=== PATIENT | male | born 1955 | race African-American/Black ===

== ENCOUNTER 2019-11-19 01:52 | Inpatient (IN) | payer OTHER ==
[2019-11-19] MEDS ORDERED: Propofol 1,000 MG/100 ML VIAL IV ONE (02:04)
[2019-11-19] MEDS ORDERED: Magnesium 2 GM/50 ML BAG (IN WATER) ONE (02:10)
[2019-11-19 02:17] LABS: #Basophils 0.1 thou/uL (0.0-0.2); #Eosinphils 0.6 thou/uL (0.0-0.7); #Lymphocytes 1.8 thou/uL (1.20-3.40); #Monocytes 1.4 thou/uL (0.11-0.59); #Neutrophils 14.7 thou/uL (1.40-6.50); %Basophils 0.7 % (0.0-1.0); %Eosinophils 3.4 % (0.0-10.0); %Lymphocytes 9.4 % (21.0-51.0); %Monocytes 7.6 % (0.0-10.0); %Neutrophils 78.8 % (42.0-75.0); Hemoglobin 12.8 g/dL (14.0-18.0); Mean Corpuscular HGB CONC 32.2 g/dL (32.0-36.0); Mean Corpuscular Hemoglobin 27.2 pg (27.0-31.0); Mean Corpuscular Volume 84.5 fL (78.0-98.0); Mean Platelet Volume 9.8 fL (7.4-10.4); Platelet Count 310 thou/uL (130-400); RBC Distribution Width 13.3 % (11.5-14.5); Red Blood Cell (RBC) Count 4.72 mill/uL (4.70-6.10); White Blood Cell (WBC) Count 18.6 thou/uL (4.8-10.8)
[2019-11-19 02:19] LABS: Actual Bicarbonate (HCO3a) 24.4 mEq/L (22-28); Analyzer IN Cardio ER; Base Excess (BEa) -3.3 mEq/L (-2.0 to +3.0); CO2 Tension 55.4 mmHg (35.0-45.0); Carboxyhemoglobin (COHb) 0.3 gm% (0.0-3.0); Hemoglobin (Hb) 13.1 g/dL (14.0-18.0); O2 Tension (PaO2) 202.3 mmHg (> 80.0); Potassium - ABG Lab 3.66 mmol/L (3.70-5.30); pH, Arterial 7.26 (7.35-7.45)
[2019-11-19 02:27] LABS: Puncture Site LRA
[2019-11-19] MEDS ORDERED: Cefepime 2 GM VIAL ONE (02:28)
[2019-11-19 02:37] LABS: ALT (SGPT) 14 U/L (8-55); AST (SGOT) 15 U/L (5-34); Albumin 4.3 g/dL (3.4-4.8); Alkaline Phosphatase 109 U/L (40-110); Anion Gap 15 mmol/L (10-20); BUN (Urea Nitrogen) 10 mg/dL (8.4-25.7); Bilirubin, Total 0.5 mg/dL (0.2-1.2); Calc. Creatinine Clearance 0 mL/min (70-130); Calcium 9.3 mg/dL (7.8-10.44); Carbon Dioxide 26 mmol/L (23-31); Chloride 103 mmol/L (98-107); Estimated GFR-MDRD Greater than 90; Globulin 3.9 g/dL (2.4-3.5); Glucose 159 mg/dL (80-115); Protein, Total 8.2 g/dL (5.8-8.1); Sodium 140 mmol/L (136-145)
[2019-11-19] MEDS ORDERED: Vancomycin 1 GM/200 ML BAG ONE (03:15)
[2019-11-19] MEDS ORDERED: Propofol BOLUS 1,000 MG/100 ML VIAL IV PRN (04:49)
[2019-11-19] MEDS ORDERED: Propofol 1,000 MG/100 ML VIAL IV PRN (04:49)
[2019-11-19] MEDS ORDERED: Ondansetron ODT 4 MG TAB PO PRN (04:57)
[2019-11-19] MEDS ORDERED: Dextrose 5% in Water 1,000 ML IV PRN (04:57)
[2019-11-19] MEDS ORDERED: CCU Electrolyte Replacement 1 EACH FS ONE (04:57)
[2019-11-19] MEDS ORDERED: Ondansetron PF 4 MG/2 ML Vial IVP PRN (04:57)
[2019-11-19] MEDS ORDERED: Acetaminophen 650 MG Suppository PR PRN (04:57)
[2019-11-19] MEDS ORDERED: Acetaminophen 500 MG TAB PO PRN (04:57)
[2019-11-19] MEDS ORDERED: Ventilator Sedation Protocol 1 EACH FS ONE (04:57)
[2019-11-19] MEDS ORDERED: Labetalol HCl 100 MG/20 ML VIAL SLOW IVP PRN (04:57)
[2019-11-19] MEDS ORDERED: Dextrose 50% Abboject 50 ML SYRINGE SLOW IVP PRN (04:57)
[2019-11-19] MEDS ORDERED: DISCONTINUE PREVIOUS NARCOTIC PAIN MEDICATIONS AND BENZODIAZEPINES FS SCH (04:58)
[2019-11-19] MEDS ORDERED: Lorazepam 2 MG/ML VIAL SLOW IVP PRN (04:58)
[2019-11-19] MEDS ORDERED: Morphine 2 MG/ML SYRINGE SLOW IVP PRN (04:58)
[2019-11-19] MEDS ORDERED: fentaNYL Citrate/PF 2,000 MCG in Sodium Chloride 0.9% 60 ML IV SCH (04:58)
[2019-11-19] MEDS ORDERED: Fentanyl BOLUS 250 ML IVPB PRN (04:58)
[2019-11-19] MEDS ORDERED: Potassium Phosphate 15 MMOL in Sodium Chloride 0.9% 250 ML 250 ML IV PRN (04:59)
[2019-11-19] MEDS ORDERED: Magnesium Oxide 400 MG TAB PO PRN ×2 (04:59)
[2019-11-19] MEDS ORDERED: Potassium Phosphate 9 MMOL in Sodium Chloride 0.9% 100 ML IVPB PRN (04:59)
[2019-11-19] MEDS ORDERED: Potassium Chloride 40 MEQ in Premix Bag 1 BAG IVPB PRN (04:59)
[2019-11-19] MEDS ORDERED: Potassium Chloride 20 MEQ TAB PO PRN (04:59)
[2019-11-19] MEDS ORDERED: Potassium Phosphate 12 MMOL in Sodium Chloride 0.9% 250 ML 250 ML IV PRN (04:59)
[2019-11-19] MEDS ORDERED: Magnesium 2 GM/50 ML 2 GM in Premix Bag 1 BAG IVPB PRN (04:59)
[2019-11-19] MEDS ORDERED: Potassium Chloride 40 MEQ in Sodium Chloride 0.9% 250 ML 250 ML IVPB PRN (04:59)
[2019-11-19] MEDS ORDERED: PHOS-NAK 1 PKT PACK PO PRN ×2 (04:59)
[2019-11-19] MEDS ORDERED: CCU ELECTROLYTE REPLACEMENT PROTOCOL FS PRN (04:59)
[2019-11-19 05:02] VITALS: BMI 37.1
[2019-11-19] MEDS: Dextrose 5 % And 0.9 % NaCl 1,000 ML IV SCH ×2 (05:14→09:36)
[2019-11-19] MEDS: Sodium Chloride 0.9% 1,000 ML IV SCH ×2 (05:15→15:00)
--- NOTE | 2019-11-19 05:31 | HP ---
PRIMARY CARE PROVIDERS: [place], [place] [facility]. CHIEF COMPLAINT: Shortness of breath. HISTORY OF PRESENT ILLNESS: This is a 64-year-old male, who was transported to [facility] Emergency Department after complaining of increased shortness of breath. The patient apparently presented to the [facility] at the [facility] and noted to be in respiratory distress. The patient received bronchodilator therapy and placed on oxygen and was noted with O2 saturations in the 70% range. The patient had initial improvement with oxygen supplementation and DuoNeb therapy, however, rapidly decompensated, at which point, EMS personnel were notified. The patient was evaluated on site and given a trial of continuous positive airway pressure. The patient continued to clinically decline and became lethargic with altered mental status. The patient was intubated prior to arrival. In the emergency room, the patient received aggressive resuscitation with IV Solu-Medrol 125 mg IV push in addition to Rocephin 2 g IV push, azithromycin 500 mg, and vancomycin 1 g. The patient also received magnesium sulfate 2 g IV piggyback and placed on Diprivan infusion for sedation on mechanical ventilation. Chest imaging showed no acute infiltrate with hyperinflation of the lung pereyra. CT angiogram of the chest showed no evidence for pulmonary embolus. The patient was referred to the Hospitalist Service for admission. PAST MEDICAL HISTORY: 1. Diabetes mellitus, type 2. 2. Hypertension. 3. Chronic obstructive pulmonary disease. 4. Benign prostatic hyperplasia. 5. Depression. PAST SURGICAL HISTORY: Reviewed and negative. CURRENT MEDICATIONS: 1. Amlodipine 10 mg p.o. daily. 2. Lipitor 10 mg p.o. daily. 3. Atrovent 2 puffs inhaled t.i.d. 4. Dulera 2 puffs inhaled b.i.d. 5. Novolin N 26 units subcutaneously q.a.m. and 13 units subcutaneously at bedtime. 6. Terazosin 2 mg p.o. daily. 7. Timolol maleate ophthalmic drops 0.5% one drop to each eye b.i.d. 8. Venlafaxine 150 mg p.o. daily. 9. Metformin 1000 mg p.o. b.i.d. ALLERGIES: HAL INHIBITORS AND HYDRALAZINE. FAMILY HISTORY: No inheritable diseases per review of the medical record. SOCIAL HISTORY: Resides at [facility], [place] [facility]. No current alcohol, tobacco, or illicit drug use. REVIEW OF SYSTEMS: Unobtainable due to patient's altered mental status and respiratory failure, on mechanical ventilation. PHYSICAL EXAMINATION: VITAL SIGNS: On admission; blood pressure 175/105, pulse 94, respiratory rate 22, temperature 97.2 degrees Fahrenheit, and O2 saturation 100% on FiO2 of 40%. GENERAL APPEARANCE: This is a 64-year-old male, on current mechanical ventilation and sedation with propofol. HEENT: Pupils are equal, round, and reactive to light and accommodation. Extraocular muscles are intact. No scleral icterus. Mild conjunctival injection. Nares patent. OP is clear with ET tube in place. NECK: Supple. No cervical adenopathy. No thyromegaly. No carotid bruits. No JVD appreciated. No meningeal signs noted. CHEST: Diminished breath sounds bilaterally with expiratory wheeze. Poor air flow in the bases. CARDIOVASCULAR: S1 and S2 with tachycardia. No murmur, rub, or gallop appreciated. ABDOMEN: Obese, soft, nontender, and nondistended. Bowel sounds are positive in all 4 quadrants. There is no hepatosplenomegaly. No abdominal bruits. No rebound or guarding appreciated. EXTREMITIES: Warm and dry with fair turgor. Minimal edema to the ankle region bilaterally. Pulses palpable distally at the dorsalis pedis, posterior tibial, and popliteal arteries bilaterally. Capillary refill less than 2 seconds. NEUROLOGIC: Sedate on mechanical ventilation. Occasional random movement of the feet and arms. PERTINENT LABORATORY AND X-RAY FINDINGS: Sodium 140, potassium 4.0, chloride 103, CO2 of 26, BUN 10, creatinine 0.82, and glucose 159. Lactic acid level 0.6 and calcium 9.3. LFTs within normal limits. BNP 21.3. CBC showed a white blood cell count of 18.6, hemoglobin 12.8, hematocrit 40, and platelet count 310 with 79% neutrophils. D-dimer 0.68. ABG dated 11/19/2019, showed a pH of 7.26, pCO2 of 55, PO2 of 202, bicarb 24, and O2 saturation 99% on 60% FiO2 by SIMV. Portable chest x-ray dated 11/19/2019, showed no acute cardiopulmonary process. Endotracheal tube in appropriate positioning. CT angiogram of the chest dated 11/19/2019, showed no acute pulmonary embolus. EKG dated 11/19/2019, by my interpretation shows sinus tachycardia with heart rates in the 100s. Normal R-wave progression noted in the precordial leads. No acute ST-T wave changes appreciated. ASSESSMENT AND PLAN: 1. Acute hypoxic hypercapnic respiratory failure. The patient will be admitted to the Critical Care unit. Suspect secondary to sepsis and chronic obstructive pulmonary disease exacerbation. We will continue SIMV and titrate to clinical response. Consult Pulmonology Service in the a.m. Repeat ABG and portable chest x-ray. 2. Sepsis. Likely pulmonary etiology, however, no specific infiltrate identified on chest imaging. Continue general sepsis protocol. IV fluids with normal saline at 100 mL/hour. Continue Rocephin 2 g IV q.24 hours with additional Levaquin 750 mg IV daily. 3. Chronic obstructive pulmonary disease exacerbation. We will continue aggressive pulmonary supportive management. DuoNebs q.4 hours. Solu-Medrol 40 mg IV q.6 hours. Add Dulera 2 puffs inhaled b.i.d. 4. Diabetes mellitus, type 2. Insulin sliding scale for reflexive coverage. Serial Accu-Cheks before meals and at bedtime. ADA diet when tolerating p.o. intake. 5. Hypertension. Labile. Suspect secondary to #1. Labetalol 20 mg IV push q.4 hours p.r.n. systolic greater than or equal to 170. 6. Prophylaxis. SCDs while in bed. Pepcid 20 mg IV b.i.d. CCU sedation and electrolyte protocol. 7. Code status is full. Surrogate medical decision maker, not identified. TIME SPENT: Total critical care time provided by me, 45 minutes. Job ID: [id number]
[2019-11-19] MEDS: methylPREDNISolone Sod Succ 40 MG VIAL IVP SCH ×2 (05:46→15:00)
[2019-11-19] MEDS: HumaLOG 300 UNITS/3 ML VIAL SC PRN ×3 (06:16→15:47)
[2019-11-19] MEDS: Famotidine/PF 20 mg/2ml Vial SLOW IVP SCH ×2 (07:43→20:06)
[2019-11-19] MEDS: Mometasone 200 MCG/Formoterol 5 MCG 120 PUFF INHALER INH SCH ×2 (07:50→19:43)
--- NOTE | 2019-11-19 07:50 | CT ---
PRELIMINARY REPORT/[facility]/EMERGENCY AFTER HOURS PROCEDURE PROCEDURE: CTA Chest with IV Contrast Material . HISTORY: Short of breath. TECHNIQUE: Axial images were performed with multiplanar and 3-D (maximum intensity projection and thien face-shaded) reconstructions. The patient was given iodinated nonionic IV contrast . COMPARISON: None . FINDINGS: Mild atherosclerosis and tortuosity thoracic aorta with no aneurysm or dissection. No evidence of pulmonary embolus. Some scattered prominent mediastinal nodes to 1.3 cm. Calcified hilar lymph nodes bilaterally. Endo tracheal and NG tube in place. Normal size heart with no pericardial fluid. Minimal scar versus atelectasis lung bases and RIGHT upper lobe. No pulmonary consolidation, masses, or pleural fluid. Punctate calcified granulomas both lung pereyra. Visualized upper abdomen shows punctate calcified granulomas in the liver and spleen. No acute bony abnormality IMPRESSION: No pulmonary embolus or aortic dissection. No pulmonary consolidation. Previous granulomatous disease. Some prominent mediastinal lymph nodes. No other significant abnormality identified. ELECTRONICALLY SIGNED BY: Rashaun Mendoza MD Nov 19, 2019 3:31:15 AM CDT This report is intended for review by the ordering physician only, in accordance of law. If you recei ve this report in error, please call [facility] at [phone]. FINAL REPORT Exam: CT angiogram of the chest HISTORY: Dyspnea.Shortness of breath. COMPARISON: None TECHNIQUE: CT angiogram of the chest is performed in the axial plane. Three-dimensional reformatted i mages are submitted for interpretation FINDINGS: Mediastinum: No mass, lymphadenopathy or hematoma. HEART: Normal size. No significant pericardial fluid. Aorta: No aneurysm or dissection Upper solid abdominal viscera: No abnormality enhancement. Trachea and central bronchi: Patent Pleural spaces: No effusion Lung parenchyma: No masses or consolidation. There are dependent atelectatic changes. Pneumothorax: None Osseous structures: No lytic or blastic lesions Pulmonary arteries: Adequate contrast opacification pulmonary arterial system to the level of segment al arteries. No filling defect to suggest pulmonary embolism IMPRESSION: 1. This report is in agreement with initial report by [facility] 2. No evidence of pulmonary embolism to the level of segmental arteries. Transcribed Date/Time: 11/19/2019 8:34 AM
[2019-11-19] MEDS ORDERED: cefTRIAXone\\ROCEPHIN 2 GM in Sodium Chloride 0.9% 100 ML IVPB SCH (08:00)
--- NOTE | 2019-11-19 08:02 | RAD ---
EXAM: CHEST ONE VIEW HISTORY: Dyspnea/shortness of breath. Decreased oxygen saturation. COMPARISON: None FINDINGS: Endotracheal tube is noted in place with tip overlying the T4-5 level and above the level of the vanessa na. Nasogastric tube is noted in place, but the distal portion of nasogastric tube is not well seen on this exam. The cardiac silhouette and pulmonary vasculature are within normal limits. Calcified gr anuloma is seen at the right lung base. The lungs are otherwise clear. The osseous structures are intact. IMPRESSION: 1. Endotracheal tube and nasogastric tubes are noted in place. The distal portion of the nasogastric tube is not visualized on this exam. 2. No acute cardiopulmonary process.
--- NOTE | 2019-11-19 09:27 | PDOC.HOSPP ---
- Subjective Encounter Date: 11/19/19 Encounter Time: 09:27 Subjective: intubated, ju-responsive - Objective Vital Signs & Weight: Vital Signs (12 hours) Temp Pulse Resp BP Pulse Ox 11/19/19 08:37 97.9 F 79 24 H 97 11/19/19 08:00 97.9 F 24 H 11/19/19 07:53 87 11/19/19 07:49 91 24 H 100 11/19/19 07:24 100 11/19/19 06:00 24 H 11/19/19 05:17 100 11/19/19 04:52 93 135/70 Weight Weight 258 lb 13.163 oz Most Recent Monitor Data Heart Rate from ECG 75 NIBP 99/58 NIBP BP-Mean 68 Respiration from ECG 3 SpO2 98 I&O: 11/18/19 11/19/19 11/20/19 06:59 06:59 06:59 Intake Total 164.7 100 Output Total 200 345 Balance -35.3 -245 Result Diagrams: 11/19/19 02:06 11/19/19 02:06 Additional Labs: Accuchecks 11/19/19 06:04 POC Glucose 201 H Hospitalist ROS - Medication Medications: Active Medications Generic Name Dose Route Start Last Admin Trade Name Freq PRN Reason Stop Dose Admin Albuterol/Ipratropium 3 ml 11/19/19 06:30 11/19/19 07:49 Duoneb NEB 3 ml [id number] BROOKLYNN Administration Famotidine 20 mg 11/19/19 09:00 11/19/19 07:43 Pepcid SLOW IVP 20 mg Q12HR BROOKLYNN Administration Dextrose/Sodium Chloride 1,000 mls @ 125 mls/hr 11/19/19 05:00 11/19/19 05:14 D5 0.9% Ns IV 11/19/19 15:20 Not Given .Q8H BROOKLYNN Ceftriaxone Sodium 2 gm/ 100 mls @ 200 mls/hr 11/19/19 08:00 11/19/19 07:50 Sodium Chloride IVPB 100 mls Q24HR BROOKLYNN Administration Levofloxacin 750 mg/ Device 150 mls @ 100 mls/hr 11/19/19 06:00 11/19/19 05: 46 IVPB 150 mls Q24HR BROOKLYNN Administration Sodium Chloride 1,000 mls @ 100 mls/hr 11/19/19 04:57 11/19/19 05:15 Normal Saline 0.9% IV Not Given .Q10H BROOKLYNN Fentanyl Citrate 2,000 mcg/ 100 mls @ 0 mls/hr 11/19/19 04:58 11/19/19 07:40 Sodium Chloride IV 12/19/19 04:58 100 mls INF BROOKLYNN Administration Protocol Per Protocol Insulin Human Lispro 0 units 11/19/19 04:57 11/19/19 06:16 Humalog SC 3 unit .MILD SLIDING SCALE PRN Administration Mild Correctional Scale Methylprednisolone Sodium Succinate 40 mg 11/19/19 06:00 11/19/19 05:46 Solu-Medrol IVP 40 mg Q6HR BROOKLYNN Administration Mometasone Furoate/Formoterol Fumar 2 puff 11/19/19 06:30 11/19/19 07:50 Dulera 200 Mcg/5 Mcg Inhaler INH 2 puff BID-RT BROOKLYNN Administration - Exam General Appearance: NAD Neck: no JVD Heart: RRR, no murmur Respiratory - other findings: good BS, moderately diminished Gastrointestinal: soft, non-distended Extremities: no edema Hosp A/P (1) Acute respiratory failure with hypoxia and hypercapnia Code(s): J96.01 - ACUTE RESPIRATORY FAILURE WITH HYPOXIA; J96.02 - ACUTE RESPIRATORY FAILURE WITH HYPERCAPNIA Status: Acute (2) COPD exacerbation Code(s): J44.1 - CHRONIC OBSTRUCTIVE PULMONARY DISEASE W (ACUTE) EXACERBATION Status: Acute (3) DM type 2 (diabetes mellitus, type 2) Status: Acute Qualifiers: 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
[2019-11-19] MEDS ORDERED: Iopamidol 370 76% 100 ML VIAL ONE (14:30)
--- NOTE | 2019-11-19 16:17 | CON ---
DATE OF CONSULTATION: 11/19/2019 SERVICE: Pulmonary Medicine. REASON FOR CONSULTATION: Respiratory failure. HISTORY OF PRESENT ILLNESS: The patient is a 64-year-old male with past medical history significant for some degree of COPD. He was in his usual state of health in custody at [facility]. He started having increasing work of breathing and shortness of breath. He presented to the emergency department and was subsequently intubated for respiratory failure. Overnight, his oxygen requirements have improved significantly. Apparently, he had some severe obstructive airflow limitation, but on mechanical waveforms, that is not currently present. He denies any current chest discomfort, nausea, or vomiting. Otherwise, there has been no interval changes to his condition. Nursing reports no overnight events. PAST MEDICAL HISTORY: 1. COPD. 2. Type 2 diabetes mellitus. 3. Hypertension. 4. Major depressive disorder. 5. BPH. PAST SURGICAL HISTORY: None. ALLERGIES: HAL INHIBITORS AND HYDRALAZINE. MEDICATIONS: List of his inpatient medications was reviewed. No specific updates were made at this time. FAMILY HISTORY: Noncontributory. SOCIAL HISTORY: Negative for alcohol, tobacco, or illicit drug use. He currently is in the [place] [facility] at [facility]. REVIEW OF SYSTEMS: This cannot be obtained as the patient is currently intubated and sedated. PHYSICAL EXAMINATION: VITAL SIGNS: Afebrile; pulse 107; blood pressure 119/91; respirations 21; and saturation 100%, currently on 23% FiO2 and a PEEP of 5. GENERAL: The patient is intubated and sedated. HEENT: Normocephalic and atraumatic. Sclerae are white. Conjunctivae are pink. Oral mucosa is moist without lesions. LUNGS: Decent air entry. There is a little prolonged expiratory phase, but not much wheezing. No crackles are appreciated. HEART: Normal rate, regular. ABDOMEN: Soft, nontender, and nondistended. Bowel sounds are positive. MUSCULOSKELETAL: No cyanosis or clubbing. No pitting in bilateral lower extremities. NEUROLOGIC: Grossly nonfocal. LABORATORY DATA: WBC 18.6, hemoglobin 12.8, and platelets 310,000. D-dimer 0.68. PH of 7.26, pCO2 of 55, pO2 of 202, corresponding to a saturation of 99%. At the time, he is on 60% FiO2. Basic metabolic profile and liver function studies are unremarkable. BNP 21.3. Troponin less than the assay limit of 0.01. Lactate is unremarkable. Influenza A and B are negative. IMAGING DATA: CTA of the chest demonstrates no evidence of an acute pulmonary embolism. There are no infiltrates present. Little scattered atelectasis here and there are present. ASSESSMENT: 1. Acute hypoxic and hypercapnic respiratory failure. 2. Chronic obstructive pulmonary disease with acute exacerbation. DISCUSSION AND PLAN: The patient is doing fine on mechanical ventilator. I will put him on a spontaneous breathing trial. If he meets criteria, extubation will be considered. Pulmonary/Critical Care will continue to follow along in this location. We will convert his steroids over to p.o. He can complete a 5-day course. We will continue his antibiotics and nebulized therapy. On discharge from the hospital, he will need to resume his home inhalers. Critical care time: 30 minutes. Job ID: [id number] MTDD
[2019-11-19] MEDS ORDERED: FLU VACC TS2019-20(65YR UP)/PF 180 MCG/0.5 ML SYRINGE IM ONE (21:00)
[2019-11-20] MEDS: HumaLOG 300 UNITS/3 ML VIAL SC PRN ×4 (05:13→21:40)
[2019-11-20 05:46] LABS: Hemoglobin 12.2 g/dL (14.0-18.0); Hypochromia SLIGHT = 6-15 cells (100X) (0-5/hpf); Lymphocytes 5 % (21-51); MDiff Complete? YES; Mean Corpuscular HGB CONC 32.3 g/dL (32.0-36.0); Mean Corpuscular Hemoglobin 27.3 pg (27.0-31.0); Mean Corpuscular Volume 84.4 fL (78.0-98.0); Mean Platelet Volume 9.8 fL (7.4-10.4); Monocytes 9 % (0-10); Neutrophil 86 % (42-75); Platelet Count 396 thou/uL (130-400); Platelet Morphology Comment Appears Adequate; RBC Distribution Width 13.5 % (11.5-14.5); Red Blood Cell (RBC) Count 4.49 mill/uL (4.70-6.10); White Blood Cell (WBC) Count 16.1 thou/uL (4.8-10.8)
[2019-11-20] MEDS: Mometasone 200 MCG/Formoterol 5 MCG 120 PUFF INHALER INH SCH ×2 (07:24→19:25)
[2019-11-20] MEDS: Famotidine/PF 20 mg/2ml Vial SLOW IVP SCH ×2 (08:42→21:40)
[2019-11-20] MEDS: predniSONE 20 MG TAB PO SCH (08:42)
--- NOTE | 2019-11-20 14:47 | PDOC.HOSPP ---
- Subjective Encounter Date: 11/20/19 Subjective: Feeling some better. Breathing a little better. Denies fever. Has had several prior admissions for the same. This is no different than previous episodes. - Objective Vital Signs & Weight: Vital Signs (12 hours) Temp Pulse Resp BP Pulse Ox 11/20/19 13:56 94 18 99 11/20/19 11:15 98.4 F 99 16 154/83 H 95 11/20/19 10:13 93 18 98 11/20/19 07:18 87 18 99 11/20/19 06:57 97.9 F 93 18 146/83 H 97 11/20/19 04:31 98.2 F 109 H 18 138/83 92 L Weight Admit Weight 258 lb Weight 258 lb 13.163 oz Most Recent Monitor Data Heart Rate from ECG 107 NIBP 119/91 NIBP BP-Mean 99 Respiration from ECG 21 SpO2 100 I&O: 11/19/19 11/20/19 11/21/19 06:59 06:59 06:59 Intake Total 164.7 2044 Output Total 200 3540 Balance -35.3 -1496 Result Diagrams: 11/20/19 04:45 11/19/19 02:06 Additional Labs: Accuchecks 11/20/19 11/20/19 11/19/19 11:22 04:35 20:20 POC Glucose 213 H 215 H 221 H 11/19/19 15:24 POC Glucose 231 H Hospitalist ROS - Medication Medications: Active Medications Generic Name Dose Route Start Last Admin Trade Name Freq PRN Reason Stop Dose Admin Albuterol/Ipratropium 3 ml 11/19/19 06:30 11/20/19 13:56 Duoneb NEB 3 ml [id number] BROOKLYNN Administration Famotidine 20 mg 11/19/19 09:00 11/20/19 08:42 Pepcid SLOW IVP 20 mg Q12HR BROOKLYNN Administration Levofloxacin 750 mg/ Device 150 mls @ 100 mls/hr 11/19/19 06:00 11/20/19 05: 07 IVPB 150 mls Q24HR BROOKLYNN Administration Insulin Human Lispro 0 units 11/19/19 04:57 11/20/19 13:29 Humalog SC 3 unit .MILD SLIDING SCALE PRN Administration Mild Correctional Scale Mometasone Furoate/Formoterol Fumar 2 puff 11/19/19 06:30 11/20/19 07:24 Dulera 200 Mcg/5 Mcg Inhaler INH 2 puff BID-RT BROOKLYNN Administration Prednisone 40 mg 11/20/19 08:00 11/20/19 08:42 Prednisone PO 11/24/19 08:01 40 mg QAM-WM BROOKLYNN Administration - Exam General Appearance: NAD, awake alert Heart: RRR, no murmur, no gallops, no rubs, normal peripheral pulses Respiratory: rales, wheezes Gastrointestinal: soft, non-tender, non-distended, normal bowel sounds, no palpable masses, no hepatomegaly, no splenomegaly, no bruit Extremities: no cyanosis, no clubbing, no edema Skin: normal turgor Psychiatric: normal affect, normal behavior, A&O x 3 Hosp A/P (1) Acute respiratory failure with hypoxia and hypercapnia Code(s): J96.01 - ACUTE RESPIRATORY FAILURE WITH HYPOXIA; J96.02 - ACUTE RESPIRATORY FAILURE WITH HYPERCAPNIA Status: Acute (2) COPD exacerbation Code(s): J44.1 - CHRONIC OBSTRUCTIVE PULMONARY DISEASE W (ACUTE) EXACERBATION Status: Acute (3) DM type 2 (diabetes mellitus, type 2) Status: Acute Qualifiers: Diabetes mellitus assisted insulin use: unspecified watermaster insulin use status Diabetes mellitus complication status: without complication Qualified Code(s): E11.9 - Type 2 diabetes mellitus without complications (4) HTN (hypertension) Code(s): I10 - ESSENTIAL (PRIMARY) HYPERTENSION Status: Chronic Qualifiers: Hypertension type: essential hypertension Qualified Code(s): I10 - Essential (primary) hypertension
[2019-11-20] MEDS ORDERED: guaiFENesin ER 600 MG TAB PO SCH (15:30)
--- NOTE | 2019-11-20 15:36 | PRG ---
DATE OF SERVICE: 11/20/2019 SERVICE: Pulmonary Medicine. INTERVAL HISTORY: The patient is concerned that he is not on any blood pressure medicine or prostate medicine. He does not like the food selection. Additionally, he feels that he has sputum down in his chest. He is having hard time liberating. When he gets anything up, it is thick and green. He denies any current fevers or chills. He is breathing more comfortably on a day-by-day basis. Overall, he feels like he is moving in the right direction medically. PHYSICAL EXAMINATION: VITAL SIGNS: Afebrile. Pulse 99, blood pressure 154/83, respirations 16, saturation 95% on 2 L nasal cannula. GENERAL: The patient is awake and alert, in no apparent distress. LUNGS: Decreased air entry with a slightly prolonged expiratory phase. Wheezing is present today. Dependent crackles are present bibasilarly. HEART: Normal rate and regular. ABDOMEN: Soft, nontender, nondistended. Bowel sounds are positive. MUSCULOSKELETAL: No cyanosis or clubbing. There is no pitting in bilateral lower extremities. NEUROLOGIC: Grossly nonfocal. LABORATORY DATA: WBC 16.1, hemoglobin 12.2, platelets are 396,000. Neutrophils comprise of 86% of nucleated cells. Blood sugars ranging from 201 to 245. Liver function studies and basic metabolic profile are otherwise unremarkable. Blood cultures x2 and influenza A and B are negative. ASSESSMENT: 1. Acute hypoxic and hypercapnic respiratory failure. 2. Chronic obstructive pulmonary disease with acute exacerbation. DISCUSSION AND PLAN: We will schedule the patient some Mucinex. Hopefully, this will help him liberate phlegm. We will continue his current diabetic diet. His blood sugars are likely being exacerbated by his current needed steroids. At this point, he has no further requirements for inpatient Pulmonary or Critical Care opinion, and I will sign off. He will need to complete 5 days of steroids and 7 days of antibiotics. On discharge from the hospital, he will also need to resume his home inhalers. Please call with additional questions or concerns through time. Job ID: [id number] [facility]
[2019-11-21] MEDS: guaiFENesin ER 600 MG TAB PO SCH ×2 (05:28→16:04)
[2019-11-21] MEDS: Mometasone 200 MCG/Formoterol 5 MCG 120 PUFF INHALER INH SCH ×2 (07:48→19:41)
[2019-11-21] MEDS: Famotidine/PF 20 mg/2ml Vial SLOW IVP SCH (08:06)
[2019-11-21] MEDS: predniSONE 20 MG TAB PO SCH (08:06)
--- NOTE | 2019-11-21 12:52 | PDOC.HOSPP ---
- Subjective Encounter Date: 11/21/19 Subjective: Doing a little better. Indicates his breathing is about 50% of his baseline. Also say she gets and inhaler at the unit that is [facility] HFA and it doesn't help him. - Objective Vital Signs & Weight: Vital Signs (12 hours) Temp Pulse Resp BP BP Pulse Ox 11/21/19 12:10 97.8 F 96 16 143/88 H 98 11/21/19 08:00 95 11/21/19 07:49 99 11/21/19 07:48 86 16 99 11/21/19 07:26 97.7 F 84 16 143/86 H 98 11/21/19 04:00 98.0 F 83 20 131/83 95 11/21/19 02:26 12 Weight Admit Weight 258 lb Weight 258 lb 13.163 oz Most Recent Monitor Data Heart Rate from ECG 107 NIBP 119/91 NIBP BP-Mean 99 Respiration from ECG 21 SpO2 100 I&O: 11/20/19 11/21/19 11/22/19 06:59 06:59 06:59 Intake Total 2044 1800 400 Output Total 3540 2750 2600 Balance -3139 -463 -1100 Result Diagrams: 11/20/19 04:45 11/19/19 02:06 Additional Labs: Accuchecks 11/21/19 11/21/19 11/20/19 12:17 05:23 20:11 POC Glucose 248 H 137 H 332 H 11/20/19 15:56 POC Glucose 267 H Hospitalist ROS - Medication Medications: Active Medications Generic Name Dose Route Start Last Admin Trade Name Freq PRN Reason Stop Dose Admin Albuterol/Ipratropium 3 ml 11/19/19 06:30 11/21/19 11:01 Duoneb NEB 3 ml [id number] BROOKLYNN Administration Guaifenesin 600 mg 11/21/19 04:00 11/21/19 05:28 Mucinex PO 600 mg Q12H BROOKLYNN Administration Insulin Human Lispro 0 units 11/19/19 04:57 11/20/19 16:53 Humalog SC 4 unit .MILD SLIDING SCALE PRN Administration Mild Correctional Scale Insulin Human Lispro 0 units 11/19/19 04:57 11/20/19 21:40 Humalog SC 4 unit .BEDTIME SLIDING SC PRN Administration Bedtime Correctional Scale Mometasone Furoate/Formoterol Fumar 2 puff 11/19/19 06:30 11/21/19 07:48 Dulera 200 Mcg/5 Mcg Inhaler INH 2 puff BID-RT BROOKLYNN Administration Prednisone 40 mg 11/20/19 08:00 11/21/19 08:06 Prednisone PO 11/24/19 08:01 40 mg QAM-WM BROOKLYNN Administration - Exam General Appearance: NAD, awake alert Heart: RRR, no murmur, no gallops, no rubs, normal peripheral pulses Respiratory - other findings: Wheezes, mostly L. Diminished throughout. Gastrointestinal: soft, non-tender, non-distended, normal bowel sounds, no palpable masses, no hepatomegaly, no splenomegaly, no bruit Extremities: no cyanosis, no clubbing, no edema Skin: normal turgor, no lesions, no rashes Musculoskeletal: normal tone Psychiatric: normal affect, normal behavior, A&O x 3 Hosp A/P (1) Acute respiratory failure with hypoxia and hypercapnia Code(s): J96.01 - ACUTE RESPIRATORY FAILURE WITH HYPOXIA; J96.02 - ACUTE RESPIRATORY FAILURE WITH HYPERCAPNIA Status: Acute (2) COPD exacerbation Code(s): J44.1 - CHRONIC OBSTRUCTIVE PULMONARY DISEASE W (ACUTE) EXACERBATION Status: Acute (3) DM type 2 (diabetes mellitus, type 2) Status: Acute Qualifiers: Diabetes mellitus penitentiary insulin use: unspecified superintendent terminal insulin use status Diabetes mellitus complication status: without complication Qualified Code(s): E11.9 - Type 2 diabetes mellitus without complications (4) HTN (hypertension) Code(s): I10 - ESSENTIAL (PRIMARY) HYPERTENSION Status: Chronic Qualifiers: Hypertension type: essential hypertension Qualified Code(s): I10 - Essential (primary) hypertension - Plan Still not terribly close to his baseline. Continue Steroids, nebs, abx. Weaning oxygen. Minimal need for oxygen now. Resume home meds, including metformin. Blood sugars have been a little high with the steroids. Formulary restricted meds at the [facility].
[2019-11-21] MEDS: HumaLOG 300 UNITS/3 ML VIAL SC PRN ×2 (13:46→21:31)
[2019-11-21] MEDS: Famotidine 20 MG TAB PO SCH ×2 (15:39→21:29)
[2019-11-21] MEDS: Dorzolamide HCl 2% Ophth Soln 10 ml Bottle L EYE SCH ×2 (16:02→21:27)
[2019-11-21] MEDS: metFORMIN 500 MG TAB PO SCH (16:04)
--- NOTE | 2019-11-21 17:05 | PQF ---
LIN COKER DAVID R MD [id number] CLINICAL DOCUMENTATION IMPROVEMENT CLARIFICATION FORM: ICD-10 Updated PLEASE DO AN ADDENDUM TO THE PROGRESS NOTE WITH ANY DOCUMENTATION UPDATES OR ADDITIONS AND CARRY THROUGH TO DC SUMMARY. THANK YOU. DATE: 11/21/2019 / 11/23/2019 ATTN: Dr. Ray / Dr. Odom Please exercise your independent, professional judgment in responding to the clarification form. Clinical indicators are provided on the bottom of this form for your review Please check appropriate box(es): [ XX ] Severe Sepsis with Acute Respiratory Failure due to (please specify source): ___COPD exacerbation [ ] Sepsis due to (please specify source): [ ] SIRS with Acute Respiratory Failure due to COPD [ ] SIRS due to COPD without end organ failure [ ] Other diagnosis [ ] Unable to determine For continuity of documentation, please document condition throughout progress notes and discharge summary. Thank You. CLINICAL INDICATORS - SIGNS / SYMPTOMS / LABS / RESULTS AND LOCATION IN Lab: WBC 11/18 18.6 11/19 16.1 ED 11/18: o Pulse: 96-102 Respirations: 16-22 Pulse ox: 100% on ventilator o 12 lead EKG show, sinus tachycardia o W/u here notable for SIRS criteria. H&P 11/18 (Keo): o Acute Hypoxic hypercapnic respiratory failure Suspect secondary to sepsis and chronic obstructive pulmonary disease exacerbation. o Sepsis. Likely pulmonary etiology, however, no specific infiltrate identified on chest imaging. o Continue general sepsis protocol. RISK FACTORS / RESULTS AND LOCATION IN H&P 11/18 (Keo): Past Medical History- COPD TREATMENTS / RESULTS AND LOCATION IN ED 11/18: o Cultures obtained o Cetriazone IV, Azithromycin IV, Vancomycin IV, Cefepime IV, Mechanical Ventilation Consult Pulmonology H&P 11/18 (Keo): o IV fluids with normal saline at 100ml/h. o Continue Rocephin IV with additional Levaquin IV. Thank you, Jovana (This form is maintained as a part of the permanent medical record) 2014 [email or web address]. All Rights Reserved Jovana Bassett RN, CDS [email or web address] [phone] / Cell [facility]
[2019-11-21] MEDS: Timolol 0.5% Ophth Soln 5 ml Bottle L EYE SCH (21:34)
[2019-11-22] MEDS: guaiFENesin ER 600 MG TAB PO SCH ×2 (05:13→16:06)
[2019-11-22] MEDS: Mometasone 200 MCG/Formoterol 5 MCG 120 PUFF INHALER INH SCH ×2 (07:12→18:39)
[2019-11-22] MEDS: Amlodipine 10 MG TAB PO SCH (08:33)
[2019-11-22] MEDS: Atorvastatin Calcium 10 MG TAB PO SCH (08:33)
[2019-11-22] MEDS: predniSONE 20 MG TAB PO SCH (08:33)
[2019-11-22] MEDS: Famotidine 20 MG TAB PO SCH ×2 (08:34→21:40)
[2019-11-22] MEDS: Venlafaxine HCl XR 150 MG CAP PO SCH (08:34)
[2019-11-22] MEDS: metFORMIN 500 MG TAB PO SCH ×2 (08:35→16:04)
[2019-11-22] MEDS: Timolol 0.5% Ophth Soln 5 ml Bottle L EYE SCH ×2 (08:35→19:34)
[2019-11-22] MEDS: Dorzolamide HCl 2% Ophth Soln 10 ml Bottle L EYE SCH ×3 (08:35→21:40)
--- NOTE | 2019-11-22 10:59 | PDOC.HOSPP ---
- Subjective Encounter Date: 11/22/19 Subjective: Says he is still SOB. Says he got up a chair and "almost fell out" because of SOB. - Objective Vital Signs & Weight: Vital Signs (12 hours) Temp Pulse Resp BP BP BP Pulse Ox 11/22/19 08:35 97 137/91 H 11/22/19 08:33 97 137/91 H 11/22/19 08:00 95 11/22/19 07:51 99.3 F 97 20 137/91 H 95 11/22/19 07:13 94 16 95 11/22/19 04:00 97.8 F 94 20 141/85 H 95 11/22/19 02:20 12 11/21/19 23:54 98.1 F 88 20 153/93 H 93 L Weight Admit Weight 258 lb Weight 258 lb 13.163 oz Most Recent Monitor Data Heart Rate from ECG 107 NIBP 119/91 NIBP BP-Mean 99 Respiration from ECG 21 SpO2 100 I&O: 11/21/19 11/22/19 11/23/19 06:59 06:59 06:59 Intake Total 1800 1480 Output Total 2750 3800 Balance -950 -2320 Result Diagrams: 11/20/19 04:45 11/19/19 02:06 Additional Labs: Accuchecks 11/22/19 11/21/19 11/21/19 04:37 19:55 16:31 POC Glucose 156 H 327 H 292 H 11/21/19 12:17 POC Glucose 248 H Hospitalist ROS - Medication Medications: Active Medications Generic Name Dose Route Start Last Admin Trade Name Freq PRN Reason Stop Dose Admin Albuterol/Ipratropium 3 ml 11/19/19 06:30 11/22/19 07:13 Duoneb NEB 3 ml [id number] BROOKLYNN Administration Amlodipine Besylate 10 mg 11/22/19 09:00 11/22/19 08:33 Norvasc PO 10 mg DAILY BROOKLYNN Administration Atorvastatin Calcium 10 mg 11/22/19 09:00 11/22/19 08:33 Lipitor PO 10 mg DAILY BROOKLYNN Administration Dorzolamide HCl 1 drop 11/21/19 15:00 11/22/19 08:35 Trusopt 2% Ophth Soln L EYE 1 drop TID BROOKLYNN Administration Famotidine 20 mg 11/21/19 09:00 11/22/19 08:34 Pepcid PO 20 mg BID BROOKLYNN Administration Guaifenesin 600 mg 11/21/19 04:00 11/22/19 05:13 Mucinex PO 600 mg Q12H BROOKLYNN Administration Insulin Human Lispro 0 units 11/19/19 04:57 11/21/19 13:46 Humalog SC 3 unit .MILD SLIDING SCALE PRN Administration Mild Correctional Scale Insulin Human Lispro 0 units 11/19/19 04:57 11/21/19 21:31 Humalog SC 4 unit .BEDTIME SLIDING SC PRN Administration Bedtime Correctional Scale Levofloxacin 750 mg 11/22/19 06:00 11/22/19 05:13 Levaquin PO 750 mg 0600 BROOKLYNN Administration Metformin HCl 1,000 mg 11/21/19 17:00 11/22/19 08:35 Glucophage PO 1,000 mg BID-WM BROOKLYNN Administration Mometasone Furoate/Formoterol Fumar 2 puff 11/19/19 06:30 11/22/19 07:12 Dulera 200 Mcg/5 Mcg Inhaler INH 2 puff BID-RT BROOKLYNN Administration Prednisone 40 mg 11/20/19 08:00 11/22/19 08:33 Prednisone PO 11/24/19 08:01 40 mg QAM-WM BROOKLYNN Administration Timolol Maleate 1 drop 11/21/19 21:00 11/22/19 08:35 Timoptic 0.5% Ophth Soln L EYE 1 drop BID BROOKLYNN Administration Venlafaxine HCl 150 mg 11/22/19 09:00 11/22/19 08:34 Effexor Xr PO 150 mg QAM BROOK[place]NN Administration - Exam General Appearance: NAD, awake alert Heart: RRR, no murmur, no gallops, no rubs, normal peripheral pulses Respiratory - other findings: Very minimal exp wheeze. Fairly good air exchange. Gastrointestinal: soft, non-tender, non-distended, normal bowel sounds, no palpable masses, no hepatomegaly, no splenomegaly, no bruit Extremities: no cyanosis, no clubbing, no edema Musculoskeletal: normal tone, normal strength, no muscle wasting Psychiatric: normal affect, normal behavior, A&O x 3 Hosp A/P (1) Acute respiratory failure with hypoxia and hypercapnia Code(s): J96.01 - ACUTE RESPIRATORY FAILURE WITH HYPOXIA; J96.02 - ACUTE RESPIRATORY FAILURE WITH HYPERCAPNIA Status: Acute (2) COPD exacerbation Code(s): J44.1 - CHRONIC OBSTRUCTIVE PULMONARY DISEASE W (ACUTE) EXACERBATION Status: Acute (3) DM type 2 (diabetes mellitus, type 2) Status: Acute Qualifiers: Diabetes mellitus assistant terminal manager insulin use: unspecified assistant terminal manager insulin use status Diabetes mellitus complication status: without complication Qualified Code(s): E11.9 - Type 2 diabetes mellitus without complications (4) HTN (hypertension) Code(s): I10 - ESSENTIAL (PRIMARY) HYPERTENSION Status: Chronic Qualifiers: Hypertension type: essential hypertension Qualified Code(s): I10 - Essential (primary) hypertension - Plan Room air sats are good. Continue Steroids, nebs, abx. Suspect he can DC tomorrow. He can get nebs at the [facility]. Will likely need combivent inhaler with Dulera. DC Vidya. Resume home meds, including metformin. Blood sugars have been a little high with the steroids. Formulary restricted meds at the [facility].
--- NOTE | 2019-11-22 15:04 | EKG ---
Test Reason : Blood Pressure : / mmHG Vent. Rate : 104 BPM Atrial Rate : 104 BPM P-R Int : 164 ms QRS Dur : 088 ms QT Int : 342 ms P-R-T Axes : 077 018 069 degrees QTc Int : 449 ms Sinus tachycardia Inferior infarct , age undetermined Cannot rule out Anterior infarct , age undetermined Abnormal ECG Confirmed by ONELIA EUBANKS ([id number]), order editor AMPARO STRANGE ([id number]) on 11/22/2019 3:04:10 PM Referred By: Confirmed By:ONELIA EUBANKS
[2019-11-22] MEDS: HumaLOG 300 UNITS/3 ML VIAL SC PRN ×2 (16:39→21:42)
[2019-11-23] MEDS: guaiFENesin ER 600 MG TAB PO SCH ×2 (05:11→17:04)
[2019-11-23] MEDS: HumaLOG 300 UNITS/3 ML VIAL SC PRN ×2 (05:12→14:06)
[2019-11-23] MEDS: Mometasone 200 MCG/Formoterol 5 MCG 120 PUFF INHALER INH SCH (07:46)
[2019-11-23] MEDS: Amlodipine 10 MG TAB PO SCH (08:20)
[2019-11-23] MEDS: Famotidine 20 MG TAB PO SCH (08:20)
[2019-11-23] MEDS: metFORMIN 500 MG TAB PO SCH ×2 (08:20→17:04)
[2019-11-23] MEDS: Atorvastatin Calcium 10 MG TAB PO SCH (08:20)
[2019-11-23] MEDS: predniSONE 20 MG TAB PO SCH (08:20)
[2019-11-23] MEDS: Venlafaxine HCl XR 150 MG CAP PO SCH (08:20)
[2019-11-23] MEDS: Timolol 0.5% Ophth Soln 5 ml Bottle L EYE SCH (09:42)
[2019-11-23] MEDS: Dorzolamide HCl 2% Ophth Soln 10 ml Bottle L EYE SCH ×2 (09:43→17:04)
[2019-11-23 14:17] VITALS: BP 144/86; TEMP 97.4
[2019-11-23] MEDS ORDERED: Fluticasone Propionate Nasal Spray 16 gm Bottle NASAL SCH (21:00)
--- NOTE | 2019-11-26 07:43 | DIS ---
DATE OF ADMISSION: 11/19/2019 DATE OF DISCHARGE: 11/23/2019 REASON FOR HOSPITALIZATION: Shortness of breath. SIGNIFICANT FINDINGS: The patient was found to have acute COPD exacerbation. PROCEDURES PERFORMED AND TREATMENTS RENDERED: Mr. Tapia is a 64-year-old gentleman, who presented to [facility] on 11/19/2019, with shortness of breath. Please see full history and physical on the day of admission from Dr. Crowley for details. The patient with shortness of breath and mildly elevated D-dimer, underwent CT angiography, please see full report for details. There was no pulmonary embolism identified. The patient was diagnosed with acute hypoxic and hypercapnic respiratory failure, and initially admitted to the intensive care unit. The patient with sepsis with pulmonary source and COPD diagnosed on admission. The patient was started on IV steroids, breathing treatments, and his home pulmonary medications were continued. The patient initially requiring mechanical ventilation, and Critical Care was managing the case. The patient was safely extubated on 11/20/2019. The patient had a good recovery and was weaned from oxygen completely. On 11/23/2019, the patient making good clinical improvement, was able to walk 50 feet x2 with a short break and saturating 97% on room air. The patient was recommended safe for discharge on oral antibiotics and oral steroids. Pulmonology recommending the patient safe for discharge with close followup in the outpatient setting. CONDITION ON DISCHARGE: Stable. SPECIFIC INSTRUCTIONS FOR THE PATIENT/FAMILY: 1. The patient is recommended to take a full course of oral antibiotics and oral steroids for resolution of COPD exacerbation. 2. The patient is recommended to continue all other home inhaled COPD medications. 3. The patient is recommended to take all other medications as directed by primary care physician. 4. The patient is recommended to follow up with primary care physician in the next 5 to 7 days at the [facility] unit. 5. The patient is recommended to follow up with Pulmonology in the next 2 to 4 weeks. 6. The patient is recommended to return to acute care hospital immediately if signs or symptoms return, worsen, or any other new symptoms occur. DISCHARGE MEDICATIONS: Please see full discharge medication list for details with the following changes. 1. Levofloxacin 750 mg one tablet p.o. daily. 2. Medrol Dosepak use as directed. 3. All other home medications were continued without changes. Greater than 36 minutes spent in coordinating care and discharge process for this patient. Job ID: [id number]
== END 2019-11-23 17:36 | DRG 871 ==
LOC: EEVIPCON 01:52 → ERS 01:52 → CCU 03:26 → T4-B 14:49
PROVIDERS: ADMIT Family Medicine; ATTEND Family Medicine
PROC: 5A1935Z Respiratory Ventilation, Less than 24 Consecutive Hours (ICD-10-PCS; principal; 2019-11-19)
PROC: 0BH17EZ Insertion of Endotracheal Airway into Trachea, Via Natural or Artificial Opening (ICD-10-PCS; 2019-11-19)
DX: A41.9 Sepsis, unspecified organism (principal); J96.01 Acute respiratory failure with hypoxia; J96.02 Acute respiratory failure with hypercapnia; J44.1 Chronic obstructive pulmonary disease with (acute) exacerbation; F41.9 Anxiety disorder, unspecified; E11.9 Type 2 diabetes mellitus without complications; I10 Essential (primary) hypertension; F32.9 Major depressive disorder, single episode, unspecified; N40.0 Benign prostatic hyperplasia without lower urinary tract symptoms
CPT/HCPCS: 36415; 36416; 51702; 71045; 71275; 80053; 82805; 83605; 83880; 84484; 85007; 85025; 85027; 85379; 87040; 87804; 90471; 90662; 93005; 94002; 94640; 96365; 96366; 96368; G0008; J0692; J0696; J1956; J2704; J2920; J3010; J3370; J3475; J3490; J7512; J7620; Q9967; S0028

== ENCOUNTER 2021-02-04 08:12 | Inpatient (IN) | payer OTHER ==
[2021-02-04] MEDS ORDERED: Fentanyl 100 MCG/2 ML VIAL ONE (08:25)
[2021-02-04] MEDS ORDERED: Midazolam HCl 2 mg/2 ml Vial ONE (08:25)
[2021-02-04] MEDS ORDERED: Magnesium 2 GM/50 ML 2 GM in Premix Bag 1 BAG IVPB SCH (08:45)
[2021-02-04] MEDS ORDERED: methylPREDNISolone Sod Succ/PF 125 MG/2 ML VIAL IVP SCH (08:45)
[2021-02-04] MEDS ORDERED: fentaNYL Citrate/PF 2,000 MCG in Sodium Chloride 0.9% 60 ML IV SCH (08:45)
[2021-02-04 08:51] LABS: Bilirubin Negative (Negative); Blood, Urine Moderate (Negative); Glucose, Urine (Dipstick) 500 mg/dL (Negative); Ketone, Urine Negative (Negative); Leukocyte Negative (Negative); Nitrite Negative (Negative); Protein, Urine (Dipstick) > or equal to 300 mg/dL (Neg-Trace); Specific Gravity, Urine 1.025 (1.005-1.030); Urobilinogen 0.2 mg/dL (Less than 2)
[2021-02-04] MEDS ORDERED: methylPREDNISolone Sod Succ/PF 125 MG/2 ML VIAL ONE (08:54)
[2021-02-04] MEDS ORDERED: Magnesium 2 GM/50 ML BAG (IN WATER) ONE (08:54)
[2021-02-04 08:58] LABS: Clarity Clear (Clear)
[2021-02-04 08:59] LABS: Bacteria/HPF None Seen HPF (None Seen); Squamous Epithelial 0-3 HPF (0-3)
[2021-02-04] MEDS ORDERED: Iopamidol-370 76% 500 ML 1 ML ONE (10:18)
[2021-02-04] MEDS ORDERED: Cefepime 2 GM VIAL ONE (10:31)
[2021-02-04 10:38] LABS: Actual Bicarbonate (HCO3a) 29.4 mEq/L (22-28); Analyzer IN Cardio ER; Base Excess (BEa) -2.8 mEq/L (-2.0 to +3.0); Calcium, Ionized (arterial) 1.19 mmol/L (1.12-1.30); Carboxyhemoglobin (COHb) 0.2 gm% (0.0-3.0); Hemoglobin (Hb) 13.4 g/dL (14.0-18.0); O2 Tension (PaO2), arterial 99.2 mmHg (> 80.0); Potassium - ABG Lab 5.16 mmol/L (3.70-5.30)
[2021-02-04 10:46] LABS: CO2 Tension 96.6 mmHg (35.0-45.0); Puncture Site RRA
[2021-02-04] MEDS ORDERED: Rocuronium Bromide 10 MG/ML (10ML VIAL) ONE (10:53)
[2021-02-04] MEDS ORDERED: Acetaminophen 650 MG Suppository PR PRN (11:08)
[2021-02-04] MEDS ORDERED: Ondansetron PF 4 MG/2 ML Vial IVP PRN (11:08)
[2021-02-04] MEDS ORDERED: Ondansetron ODT 4 MG TAB PO PRN (11:08)
[2021-02-04] MEDS ORDERED: Acetaminophen 325 MG TAB PO PRN (11:08)
[2021-02-04] MEDS ORDERED: Bacteriostatic Water 30 ML VIAL FS PRN (11:45)
[2021-02-04] MEDS ORDERED: Dextrose 5% in Water 1,000 ML IV PRN (11:49)
[2021-02-04] MEDS ORDERED: Dextrose 50% Abboject 50 ML SYRINGE SLOW IVP PRN (11:49)
[2021-02-04 12:05] LABS: SARS-CoV-2 NAA Rapid Test Not Detected (NotDetected)
[2021-02-04] MEDS ORDERED: Propofol 1,000 MG/100 ML VIAL IV ONE (12:33)
[2021-02-04] MEDS: Azithromycin 500 MG in Sodium Chloride 0.9% 250 ML 250 ML IVPB SCH (13:23)
[2021-02-04] MEDS ORDERED: DISCONTINUE PREVIOUS NARCOTIC PAIN MEDICATIONS AND BENZODIAZEPINES FS SCH (13:45)
[2021-02-04] MEDS ORDERED: Morphine 2 MG/ML VIAL SLOW IVP PRN (13:45)
[2021-02-04] MEDS ORDERED: Lorazepam 2 MG/ML VIAL SLOW IVP PRN (13:45)
[2021-02-04] MEDS ORDERED: Fentanyl BOLUS 250 ML IVPB PRN (13:45)
[2021-02-04] MEDS ORDERED: Propofol BOLUS 1,000 MG/100 ML VIAL IV PRN (13:45)
[2021-02-04] MEDS ORDERED: methylPREDNISolone Sod Succ 40 MG VIAL IVP SCH (14:00)
[2021-02-04] MEDS: HumaLOG 300 UNITS/3 ML VIAL SC PRN ×2 (16:27→21:38)
[2021-02-04] MEDS: methylPREDNISolone Sod Succ 40 MG VIAL IVP SCH (17:08)
[2021-02-04] MEDS ORDERED: Vecuronium 10 MG VIAL ONE (18:30)
[2021-02-04] MEDS ORDERED: Vecuronium 10 MG VIAL IV PRN (18:41)
[2021-02-04] MEDS ORDERED: Sterile Water 10 ML VIAL IVP PRN (18:41)
[2021-02-04] MEDS: Propofol 1,000 MG/100 ML VIAL IV PRN (22:41)
[2021-02-04] MEDS: Fentanyl CADD 100 ML IV SCH (23:22)
[2021-02-05] MEDS: HumaLOG 300 UNITS/3 ML VIAL SC PRN ×6 (00:19→20:33)
[2021-02-05] MEDS: methylPREDNISolone Sod Succ 40 MG VIAL IVP SCH ×3 (02:02→18:11)
[2021-02-05 03:52] LABS: Anion Gap 16 mmol/L (10-20); BUN (Urea Nitrogen) 30 mg/dL (8.4-25.7); Calc. Creatinine Clearance 97 mL/min (70-130); Calcium 9.5 mg/dL (7.8-10.44); Carbon Dioxide 23 mmol/L (23-31); Chloride 103 mmol/L (98-107); Glucose 260 mg/dL (80-115); Potassium 3.9 mmol/L (3.5-5.1); Sodium 138 mmol/L (136-145)
[2021-02-05 04:21] LABS: Band 20 % (5-11); Hemoglobin 12.7 g/dL (14.0-18.0); Lymphocytes 16 % (21-51); MDiff Complete? YES; Mean Corpuscular HGB CONC 33.2 g/dL (32.0-36.0); Mean Corpuscular Hemoglobin 27.8 pg (27.0-31.0); Mean Corpuscular Volume 83.5 fL (78.0-98.0); Mean Platelet Volume 9.8 fL (7.4-10.4); Monocytes 5 % (0-10); Neutrophil 59 % (42-75); Platelet Count 418 thou/uL (130-400); RBC Distribution Width 13.9 % (11.5-14.5); Red Blood Cell (RBC) Count 4.57 mill/uL (4.70-6.10); White Blood Cell (WBC) Count 14.5 thou/uL (4.8-10.8)
[2021-02-05 07:32] LABS: Actual Bicarbonate (HCO3a) 26.5 mEq/L (22-28); Base Excess (BEa) 3.2 mEq/L (-2.0 to +3.0); Calcium, Ionized (arterial) 1.22 mmol/L (1.12-1.30); Carboxyhemoglobin (COHb) 0.3 gm% (0.0-3.0); Hemoglobin (Hb) 13.2 g/dL (14.0-18.0); O2 Tension (PaO2), arterial 87.5 mmHg (> 80.0); Potassium - ABG Lab 3.81 mmol/L (3.70-5.30); pH, Arterial 7.48 (7.35-7.45)
[2021-02-05 07:34] LABS: Puncture Site LRA
[2021-02-05] MEDS: Propofol 1,000 MG/100 ML VIAL IV PRN ×4 (08:57→23:43)
[2021-02-05] MEDS: Enoxaparin Sodium 40 MG/0.4 ML SYRINGE SC SCH (09:00)
[2021-02-05] MEDS: Pantoprazole 40 MG GRANULES PACKET PER TUBE SCH (09:02)
[2021-02-05] MEDS: cefTRIAXone\\ROCEPHIN 1 GM in Sodium Chloride 0.9% 100 ML IVPB SCH (11:29)
[2021-02-05] MEDS: Azithromycin 500 MG in Sodium Chloride 0.9% 250 ML 250 ML IVPB SCH (13:42)
[2021-02-05] MEDS: Fentanyl CADD 100 ML IV SCH (19:35)
[2021-02-06] MEDS: HumaLOG 300 UNITS/3 ML VIAL SC PRN ×6 (00:13→20:30)
[2021-02-06] MEDS: methylPREDNISolone Sod Succ 40 MG VIAL IVP SCH ×3 (01:40→17:09)
[2021-02-06] MEDS: Propofol 1,000 MG/100 ML VIAL IV PRN ×2 (03:45→08:17)
[2021-02-06 07:33] LABS: Actual Bicarbonate (HCO3a) 28.3 mEq/L (22-28); Base Excess (BEa) 3.3 mEq/L (-2.0 to +3.0); CO2 Tension 44.4 mmHg (35.0-45.0); Calcium, Ionized (arterial) 1.22 mmol/L (1.12-1.30); Carboxyhemoglobin (COHb) 0.4 gm% (0.0-3.0); Hemoglobin (Hb) 13.3 g/dL (14.0-18.0); O2 Tension (PaO2), arterial 79.1 mmHg (> 80.0); Potassium - ABG Lab 4.23 mmol/L (3.70-5.30); pH, Arterial 7.42 (7.35-7.45)
[2021-02-06 07:35] LABS: Puncture Site LRA
[2021-02-06] MEDS: Enoxaparin Sodium 40 MG/0.4 ML SYRINGE SC SCH (08:18)
[2021-02-06] MEDS: Pantoprazole 40 MG GRANULES PACKET PER TUBE SCH (08:18)
[2021-02-06] MEDS: cefTRIAXone\\ROCEPHIN 1 GM in Sodium Chloride 0.9% 100 ML IVPB SCH (10:05)
[2021-02-06 10:19] LABS: Hemoglobin 12.9 g/dL (14.0-18.0); Mean Corpuscular HGB CONC 32.4 g/dL (32.0-36.0); Mean Corpuscular Hemoglobin 26.9 pg (27.0-31.0); Platelet Count 388 thou/uL (130-400); RBC Distribution Width 13.9 % (11.5-14.5)
[2021-02-06 10:26] LABS: Anion Gap 14 mmol/L (10-20); BUN (Urea Nitrogen) 29 mg/dL (8.4-25.7); Calc. Creatinine Clearance 123 mL/min (70-130); Calcium 8.7 mg/dL (7.8-10.44); Carbon Dioxide 26 mmol/L (23-31); Chloride 105 mmol/L (98-107); Glucose 329 mg/dL (80-115); Potassium 4.8 mmol/L (3.5-5.1); Sodium 140 mmol/L (136-145)
[2021-02-06 10:35] LABS: Band 3 % (5-11); Eosinophils 1 % (0-10); Lymphocytes 14 % (21-51); MDiff Complete? YES; Monocytes 6 % (0-10); Neutrophil 76 % (42-75); RBC Morphology Normal; White Blood Cell (WBC) Count 15.2 thou/uL (4.8-10.8)
[2021-02-06 11:33] VITALS: BMI 41.1
[2021-02-06] MEDS: Azithromycin 500 MG in Sodium Chloride 0.9% 250 ML 250 ML IVPB SCH (12:55)
[2021-02-06] MEDS ORDERED: Albuterol Sulfate 2.5 mg/3 ml Neb NEB PRN (17:09)
[2021-02-06] MEDS: Ipratropium Oral Inhaler INH SCH (19:36)
[2021-02-06] MEDS: NPH, Human Insulin Isophane 300 UNIT/3 ML VIAL SC SCH (21:08)
[2021-02-06] MEDS: Timolol 0.5% Ophth Soln 5 ml Bottle EA EYE SCH (21:10)
[2021-02-06] MEDS: Aripiprazole 10 MG TAB PO SCH (21:10)
[2021-02-06] MEDS: Atorvastatin Calcium 10 MG TAB PO SCH (21:10)
[2021-02-06] MEDS: Furosemide 40 MG TAB PO SCH (21:10)
[2021-02-06] MEDS: Citalopram 20 MG TAB PO SCH (21:10)
[2021-02-06] MEDS: Dorzolamide HCl 2% Ophth Soln 10 ml Bottle L EYE SCH (21:11)
[2021-02-07] MEDS: HumaLOG 300 UNITS/3 ML VIAL SC PRN ×6 (00:18→22:20)
[2021-02-07] MEDS: Amlodipine 10 MG TAB PO SCH ×2 (01:57→09:05)
[2021-02-07] MEDS: methylPREDNISolone Sod Succ 40 MG VIAL IVP SCH ×2 (01:59→09:06)
[2021-02-07] MEDS ORDERED: Amlodipine 10 MG TAB PO SCH (02:00)
[2021-02-07 05:39] LABS: #Eosinphils 0.1 thou/uL (0.0-0.7); #Lymphocytes 1.5 thou/uL (1.20-3.40); #Monocytes 1.2 thou/uL (0.11-0.59); %Eosinophils 0.4 % (0.0-10.0); %Lymphocytes 8.4 % (21.0-51.0); %Monocytes 6.8 % (0.0-10.0); %Neutrophils 84.4 % (42.0-75.0); Hemoglobin 13.8 g/dL (14.0-18.0); Mean Corpuscular HGB CONC 31.4 g/dL (32.0-36.0); Mean Corpuscular Hemoglobin 26.2 pg (27.0-31.0); Mean Corpuscular Volume 83.4 fL (78.0-98.0); Mean Platelet Volume 9.3 fL (7.4-10.4); Platelet Count 426 thou/uL (130-400); RBC Distribution Width 13.6 % (11.5-14.5); Red Blood Cell (RBC) Count 5.26 mill/uL (4.70-6.10); White Blood Cell (WBC) Count 17.8 thou/uL (4.8-10.8)
[2021-02-07 05:52] LABS: Anion Gap 15 mmol/L (10-20); BUN (Urea Nitrogen) 22 mg/dL (8.4-25.7); Calc. Creatinine Clearance 146 mL/min (70-130); Calcium 8.8 mg/dL (7.8-10.44); Carbon Dioxide 24 mmol/L (23-31); Chloride 102 mmol/L (98-107); Glucose 254 mg/dL (80-115); Potassium 4.1 mmol/L (3.5-5.1); Sodium 137 mmol/L (136-145)
[2021-02-07] MEDS: Ipratropium Oral Inhaler INH SCH ×3 (06:33→14:28)
[2021-02-07] MEDS: Loratadine 10 MG TAB PO SCH (09:04)
[2021-02-07] MEDS: Furosemide 40 MG TAB PO SCH ×2 (09:04→22:20)
[2021-02-07] MEDS: Enoxaparin Sodium 40 MG/0.4 ML SYRINGE SC SCH (09:05)
[2021-02-07] MEDS: Venlafaxine HCl XR 75 MG CAP PO SCH (09:05)
[2021-02-07] MEDS: NPH, Human Insulin Isophane 300 UNIT/3 ML VIAL SC SCH ×2 (09:09→22:20)
[2021-02-07] MEDS: cefTRIAXone\\ROCEPHIN 1 GM in Sodium Chloride 0.9% 100 ML IVPB SCH (10:13)
[2021-02-07] MEDS: Timolol 0.5% Ophth Soln 5 ml Bottle EA EYE SCH ×2 (10:19→22:21)
[2021-02-07] MEDS: Dorzolamide HCl 2% Ophth Soln 10 ml Bottle L EYE SCH ×3 (10:21→22:21)
[2021-02-07] MEDS: Azithromycin 500 MG in Sodium Chloride 0.9% 250 ML 250 ML IVPB SCH (11:41)
[2021-02-07] MEDS ORDERED: cloNIDine 0.1 MG TAB PO PRN (13:34)
[2021-02-07] MEDS: Aripiprazole 10 MG TAB PO SCH (22:20)
[2021-02-07] MEDS: Atorvastatin Calcium 10 MG TAB PO SCH (22:20)
[2021-02-07] MEDS: Citalopram 20 MG TAB PO SCH (22:20)
[2021-02-08] MEDS: HumaLOG 300 UNITS/3 ML VIAL SC PRN ×2 (06:18→11:50)
[2021-02-08] MEDS: Ipratropium Oral Inhaler INH SCH (07:45)
[2021-02-08] MEDS: Venlafaxine HCl XR 75 MG CAP PO SCH (08:24)
[2021-02-08] MEDS: Loratadine 10 MG TAB PO SCH (08:24)
[2021-02-08] MEDS: Amlodipine 10 MG TAB PO SCH (08:25)
[2021-02-08] MEDS: Furosemide 40 MG TAB PO SCH (08:25)
[2021-02-08] MEDS: Dorzolamide HCl 2% Ophth Soln 10 ml Bottle L EYE SCH ×2 (08:25→16:30)
[2021-02-08] MEDS: Enoxaparin Sodium 40 MG/0.4 ML SYRINGE SC SCH (08:27)
[2021-02-08] MEDS: NPH, Human Insulin Isophane 300 UNIT/3 ML VIAL SC SCH (08:27)
[2021-02-08] MEDS: Timolol 0.5% Ophth Soln 5 ml Bottle EA EYE SCH (08:28)
[2021-02-08] MEDS: cefTRIAXone\\ROCEPHIN 1 GM in Sodium Chloride 0.9% 100 ML IVPB SCH (11:50)
[2021-02-08] MEDS: Azithromycin 500 MG in Sodium Chloride 0.9% 250 ML 250 ML IVPB SCH (12:31)
[2021-02-08 16:12] VITALS: BP 154/83; TEMP 98.5
== END 2021-02-08 16:50 | DRG 208 ==
LOC: ERS 08:12 → CCU 11:08 → EEVIPCON 11:08 → SURG B 02-07 13:54
PROVIDERS: ADMIT Internal Medicine; ATTEND Internal Medicine
PROC: 5A1945Z Respiratory Ventilation, 24-96 Consecutive Hours (ICD-10-PCS; principal; 2021-02-04)
PROC: 0D9770Z Drainage of Stomach, Pylorus with Drainage Device, Via Natural or Artificial Opening (ICD-10-PCS; 2021-02-04)
DX: J44.1 Chronic obstructive pulmonary disease with (acute) exacerbation (principal); J96.01 Acute respiratory failure with hypoxia; J96.02 Acute respiratory failure with hypercapnia; Z68.41 Body mass index [BMI] 40.0-44.9, adult; I16.1 Hypertensive emergency; N17.9 Acute kidney failure, unspecified; Z20.822 Contact with and (suspected) exposure to COVID-19; I10 Essential (primary) hypertension; E78.5 Hyperlipidemia, unspecified; F32.9 Major depressive disorder, single episode, unspecified; N40.0 Benign prostatic hyperplasia without lower urinary tract symptoms; E66.01 Morbid (severe) obesity due to excess calories; F41.9 Anxiety disorder, unspecified; E11.65 Type 2 diabetes mellitus with hyperglycemia; Z79.4 Long term (current) use of insulin; Z79.899 Other long term (current) drug therapy; Z79.51 Long term (current) use of inhaled steroids; Z78.1 Physical restraint status
CPT/HCPCS: 0240U; 36415; 36416; 36600; 51702; 70496; 70498; 71045; 80048; 81003; 81015; 82805; 85025; 87086; 93005; 94002; 94003; 94640; 96365; 96366; 96368; 96375; 96376; 99292; J0456; J0692; J0696; J1650; J1815; J2060; J2250; J2704; J2920; J2930; J3010; J3475; J3490; J7050; J7620; Q9967